=== PATIENT | female | born 1995 | race Caucasian/White ===

== ENCOUNTER 2017-02-25 14:16 | Emergency (ER) | payer MEDICAID ==
[~2017-02-25] VITALS: Ht 160 cm; Wt 74.3 kg
[~2017-02-25 14:16] MED LIST: CYCL5TAB PO; NAPR-576 PO
[2017-02-25 14:42] VITALS: BP 140/75; PULSE 114; RESP 16; TEMP 98.3; O2SAT 100
[2017-02-25] MEDS ORDERED: TRICTAB PO (14:51)
--- NOTE | 2017-02-25 14:54 | PD ---
HPI Chief Complaint: Neuro Symptoms/ Deficits Time Seen by Provider: 14:32 Travel History International Travel<30 days: No Contact w/Intl Traveler<30days: No Traveled to known affect area: No History of Present Illness HPI 21-year-old female 1 para 0, 33 week , complains of transient blurring vision and right arm tingling. Patient states the symptoms started around 1 PM today. Patient states that she had blurry vision on the lateral peripheral visual field bilaterally. Patient states that the blurry vision lasted about half an hour and resolved completely. Patient states that she tried to look at her phone and could not see the numbers clearly. Patient states that she did not lose vision completely. Patient denies any headache. Patient denies any eye pain. Patient states that she had a short moment of right arm tingling sensation subsequently. Patient states that the tingling sensation of the right arm resolved completely subsequently. Patient denies any chest pain or shortness of breath. Patient denies abdominal pain. Patient denies any focal weakness or numbness of the extremity. Patient denies any history of TIA or CVA. Patient denies any complications during this . Patient denies abdominal pain. Patient denies any vaginal discharge or bleeding. Patient states that the fetus is active. PFSH Past Medical History Medical History: Denies Significant Hx Diminished Hearing: No Tetanus Vaccination: > 5 Years Influenza Vaccination: No ?: Not : 1 Para: 0 Miscarriage: 0 : 0 Past Surgical History Surgical History: No Previous Surgery Social History Alcohol Use: No Tobacco Use: No Substance Use: No Allergies-Medications (Allergen,Severity, Reaction): Coded Allergies: No Known Allergies (Unverified , 02/25/17) Reported Meds & Prescriptions Reported Meds & Active Scripts Active Reported ( Vit-Ferrous Fumarate) 1 Tab Tab 1 Tab PO DAILY Review of Systems General / Constitutional: No: Fever Eyes: Positive: Blurred Vision, No: Visual changes HENT: No: Headaches Cardiovascular: No: Chest Pain or Discomfort Respiratory: No: Shortness of Breath Gastrointestinal: No: Abdominal Pain Genitourinary: No: Dysuria Musculoskeletal: No: Pain Skin: No Rash Neurologic: No: Weakness Psychiatric: No: Depression Endocrine: No: Polydipsia Hematologic/Lymphatic: No: Easy Bruising Physical Exam Narrative GENERAL: Well-nourished, well-developed patient. SKIN: Focused skin assessment warm/dry. HEAD: Normocephalic. EYES: No scleral icterus. No injection or drainage. Pupils 3 mm equal reactive. Fundi benign. NECK: Supple, trachea midline. No JVD or lymphadenopathy. CARDIOVASCULAR: Regular rate and rhythm without murmurs, gallops, or rubs. RESPIRATORY: Breath sounds equal bilaterally. No accessory muscle use. GASTROINTESTINAL: Abdomen soft, non-tender, nondistended. MUSCULOSKELETAL: No cyanosis, or edema. BACK: Nontender without obvious deformity. No CVA tenderness. Neurologic exam: Patient's awake and alert oriented 3. No obvious focal neurological deficit. Pupils 3 mm equal reactive. Fundi benign. Data Data Last Documented VS Vital Signs Date Time Temp Pulse Resp B/P Pulse Ox O2 Delivery O2 Flow Rate FiO2 02/25/17 14:55 100 Room Air 02/25/17 14:52 02/25/17 14:42 98.3 114 16 Orders Electrocardiogram (02/25/17 14:50) Complete Blood Count With Diff (02/25/17 14:50) Basic Metabolic Panel (Bmp) (02/25/17 14:50) Prothrombin Time / Inr (Pt) (02/25/17 14:50) Act Partial Throm Time (Ptt) (02/25/17 14:50) Urinalysis - C+S If Indicated (02/25/17 14:50) Iv Access Insert/Monitor (02/25/17 14:50) Ecg Monitoring (02/25/17 14:50) Oximetry (02/25/17 14:50) Mra Brain W/O Contrast (Cow) (02/25/17 15:42) Sodium Chlor 0.9% 1000 Ml Inj (Ns 1000 M (02/25/17 16:15) Mri Brain W/O Contrast (02/25/17 ) Mra Carotids W/O Contrast (02/25/17 ) Mrv Brain W/O Contrast (02/25/17 ) Labs Laboratory Tests Test 02/25/17 02/25/17 14:55 15:35 White Blood Count 11.9 TH/MM3 Red Blood Count 3.94 MIL/MM3 Hemoglobin 12.4 GM/DL Hematocrit 35.8 % Mean Corpuscular Volume 90.7 FL Mean Corpuscular Hemoglobin 31.4 PG Mean Corpuscular Hemoglobin 34.6 % Concent Red Cell Distribution Width 12.1 % Platelet Count 157 TH/MM3 Mean Platelet Volume 8.8 FL Neutrophils (%) (Auto) 80.8 % Lymphocytes (%) (Auto) 12.4 % Monocytes (%) (Auto) 6.2 % Eosinophils (%) (Auto) 0.5 % Basophils (%) (Auto) 0.1 % Neutrophils # (Auto) 9.6 TH/MM3 Lymphocytes # (Auto) 1.5 TH/MM3 Monocytes # (Auto) 0.7 TH/MM3 Eosinophils # (Auto) 0.1 TH/MM3 Basophils # (Auto) 0.0 TH/MM3 CBC Comment DIFF FINAL Differential Comment Prothrombin Time 9.7 SEC Prothromb Time International 0.9 RATIO Ratio Activated Partial 29.3 SEC Thromboplast Time Sodium Level 140 MEQ/L Potassium Level 3.6 MEQ/L Chloride Level 105 MEQ/L Carbon Dioxide Level 24.2 MEQ/L Anion Gap 11 MEQ/L Blood Urea Nitrogen 9 MG/DL Creatinine 0.49 MG/DL Estimat Glomerular Filtration 159 ML/MIN Rate Random Glucose 77 MG/DL Calcium Level 9.0 MG/DL Urine Color YELLOW Urine Turbidity CLEAR Urine pH 7.0 Urine Specific [place] 1.005 Urine Protein NEG mg/dL Urine Glucose (UA) NEG mg/dL Urine Ketones TRACE mg/dL Urine Occult Blood NEG Urine Nitrite NEG Urine Bilirubin NEG Urine Leukocyte Esterase NEG Urine WBC 0-2 /hpf Urine Squamous Epithelial 0-5 /hpf Cells Microscopic Urinalysis Comment CULT NOT INDICATED MDM Medical Decision Making Medical Screen Exam Complete: Yes Emergency Medical Condition: Yes Interpretation(s) CBC with WBC 11.9. 80 neutrophil. BMP within normal limit. Creatinine 0.49. UA is negative. Differential Diagnosis Differential diagnosis including ocular migraine, transient neurologic deficit, vasovagal reaction. Narrative Course 21-year-old female with transient blurred vision and tingling sensation of the right arm. Patient is 33 weeks . I spoke with neurologist director utilization management, Dr. Calderon. I spoke with Dr. Schumacher, OB physician director utilization management and ED OB. Patient was advised to have MRI and MRA and MRV done and to be admitted for rule out TIA versus CVA. Patient refused MRI/MRA MRV and wants to go home and follow-up with her physician. Diagnosis Primary Impression: Transient neurologic deficit Patient Instructions: General Instructions Additional Instructions: Patient refused MRI/MRA MRI of the. Patient will follow up with her physician. Med/Other Pt SpecificInfo: No Meds Exist/No RX given Disposition: 01 DISCHARGE HOME Condition: Stable Lauro Echavarria MD Feb 25, 2017 14:54
[2017-02-25 14:55] VITALS: O2SAT 100
[2017-02-25 15:04] LABS: AUTOMATED NEUTROPHIL # 9.6 TH/MM3 (1.8-7.7); BASOPHIL % 0.1 % (0.0-2.0); EOSINOPHIL # 0.1 TH/MM3 (0-0.4); EOSINOPHIL % 0.5 % (0.0-4.0); HEMATOCRIT 35.8 % (35.0-46.0); HEMO FLAGS DIFF FINAL; LYMPH % 12.4 % (9.0-44.0); LYMPHOCYTE # 1.5 TH/MM3 (1.0-4.8); MEAN CELL VOLUME 90.7 FL (80.0-100.0); MEAN CORPUSCULAR HEMOGLOBIN 31.4 PG (27.0-34.0); MEAN CORPUSCULAR HGB CONC 34.6 % (32.0-36.0); MONO % 6.2 % (0.0-8.0); NEUT % 80.8 % (16.0-70.0); PLATELET COUNT 157 TH/MM3 (150-450); RED BLOOD COUNT 3.94 MIL/MM3 (4.00-5.30); RED CELL DISTRIBUTION WIDTH 12.1 % (11.6-17.2); WHITE BLOOD COUNT 11.9 TH/MM3 (4.0-11.0)
[2017-02-25 15:15] LABS: POTASSIUM 3.6 MEQ/L (3.5-5.1)
[2017-02-25 15:18] LABS: APTT (PATIENT) 29.3 SEC (24.3-30.1); BICARBONATE 24.2 MEQ/L (21.0-32.0); INTERNATIONAL NORMALIZED RATIO 0.9 RATIO; PROTHROMBIN TIME - PATIENT 9.7 SEC (9.8-11.6)
[2017-02-25 15:39] LABS: BLOOD, URINE NEG (NEG); GLUCOSE,URINE NEG (NEG); KETONE, URINE TRACE mg/dL (NEG); NITRITE,URINE NEG (NEG)
[2017-02-25 15:44] LABS: URINE COLOR YELLOW (YELLW/STRAW)
[2017-02-25 15:45] LABS: COMMENT (UR) CULT NOT INDICATED; CULTURE IF INDICATED CULT NOT INDICATED; SQUAMOUS EPITHELIAL CELL URINE 0-5 /hpf (0-5); WBC, URINE 0-2 /hpf (0-5)
[2017-02-25] MEDS ORDERED: SODIUM CHLOR 0.9% 1000 ML INJ 1,000 ML IV SCH (16:15)
[2017-02-25 17:39] VITALS: BP 129/87; PULSE 111; RESP 18; O2SAT 99
--- NOTE | 2017-02-26 16:08 | EKG ---
Date Performed: 02/25/2017 Time Performed: 15:01:24 PTAGE: 21 years EKG: Sinus rhythm LEFT ATRIAL ENLARGEMENT ABNORMAL ECG NO PREVIOUS TRACING DOCTOR: Wendy Rehman Interpretating Date/Time 02/26/2017 16:07:25
== END 2017-02-25 17:55 | disposition home or self-care (01) ==
LOC: PHED 14:16
DX: O26.893 Other specified pregnancy related conditions, third trimester (principal); R29.818 Other symptoms and signs involving the nervous system; H53.8 Other visual disturbances; Z3A.33 33 weeks gestation of pregnancy
CPT/HCPCS: 80048; 81001; 85025; 85610; 85730; 93005; 96360; 96361; 99284; J7030